=== PATIENT | female | born 1975 | race Caucasian/White ===

== ENCOUNTER 2017-03-06 11:18 | Emergency (ER) | payer MEDICAID ==
[~2017-03-06] VITALS: Ht 162.6 cm; Wt 54.5 kg
[2017-03-06 11:25] VITALS: BP 152/106; PULSE 78; RESP 15; TEMP 98.1; O2SAT 100
[2017-03-06] MEDS ORDERED: BIRTH CONTROL (11:42)
[2017-03-06] MEDS ORDERED: SODIUM CHLOR 0.9% 1000 ML INJ 1,000 ML IV SCH (11:46)
--- NOTE | 2017-03-06 11:54 | PD ---
HPI Chief Complaint: Abdominal Pain Time Seen by Provider: 11:31 Travel History International Travel<30 days: No Contact w/Intl Traveler<30days: No Traveled to known affect area: No History of Present Illness HPI 41-year-old female complains of abdominal pain, nausea vomiting and constipation. Patient states that she was treated for staph infection on the lower extremity about 3 weeks ago. Patient took antibiotics for about 10 days. Patient had a yeast infection after she finished antibiotic. Patient states that she used [id number] Monistat cream with resolution of the problem. Patient started having constipation for the past 2 weeks. Patient try over-the- counter stool softener with some relief. Patient started having increased right upper quadrant abdominal pain and abdominal bloating since yesterday. Patient states the pain is cramping pain and sharp pain localized to the right upper quadrant and right flank area. Patient denies any pain radiation. Patient denies any fever chills. Patient states that she has intermittent nausea vomiting. Patient denies any back pain. Patient states that she has mild dysuria and frequency for the past several days. Patient has history of recurrent UTI in the past. On a scale of 1-10 the pain is a 5. PFSH Past Medical History ?: Unknown LMP: 4 WEEKS Past Surgical History Abdominal Surgery: Yes (HERNIA) Social History Alcohol Use: Yes Tobacco Use: No Substance Use: No Allergies-Medications (Allergen,Severity, Reaction): Coded Allergies: No Known Allergies (Unverified , 03/06/17) Reported Meds & Prescriptions Reported Meds & Active Scripts Active Reported [ Control] Review of Systems General / Constitutional: No: Fever Eyes: No: Visual changes HENT: No: Headaches Cardiovascular: No: Chest Pain or Discomfort Respiratory: No: Shortness of Breath Gastrointestinal: Positive: Nausea, Vomiting, Abdominal Pain, Constipation Genitourinary: No: Dysuria Musculoskeletal: No: Pain Skin: No Rash Neurologic: No: Weakness Psychiatric: No: Depression Endocrine: No: Polydipsia Hematologic/Lymphatic: No: Easy Bruising Physical Exam Narrative GENERAL: Well-nourished, well-developed patient. SKIN: Focused skin assessment warm/dry. HEAD: Normocephalic. EYES: No scleral icterus. No injection or drainage. NECK: Supple, trachea midline. No JVD or lymphadenopathy. CARDIOVASCULAR: Regular rate and rhythm without murmurs, gallops, or rubs. RESPIRATORY: Breath sounds equal bilaterally. No accessory muscle use. GASTROINTESTINAL: Abdomen soft, nondistended. Patient has moderate tenderness on palpation right upper quadrant of the abdomen. No rebound tenderness. No mass. MUSCULOSKELETAL: No cyanosis, or edema. BACK: Nontender without obvious deformity. No CVA tenderness. Neurologic exam normal. Data Data Last Documented VS Vital Signs Date Time Temp Pulse Resp B/P Pulse Ox O2 Delivery O2 Flow Rate FiO2 03/06/17 12:40 71 20 136/83 100 03/06/17 11:25 98.1 Orders Complete Blood Count With Diff (03/06/17 11:46) Comprehensive Metabolic Panel (03/06/17 11:46) Lipase (03/06/17 11:46) Prothrombin Time / Inr (Pt) (03/06/17 11:46) Act Partial Throm Time (Ptt) (03/06/17 11:46) Urinalysis - C+S If Indicated (03/06/17 11:46) Ct Abd/Pel W Iv Contrast(Rout) (03/06/17 11:46) Iv Access Insert/Monitor (03/06/17 11:46) Ecg Monitoring (03/06/17 11:46) Oximetry (03/06/17 11:46) Ondansetron Inj (Zofran Inj) (03/06/17 12:00) Pantoprazole Inj (Protonix Inj) (03/06/17 12:00) Sodium Chlor 0.9% 1000 Ml Inj (Ns 1000 M (03/06/17 11:46) Ed Urine Pregnancytest Poc (03/06/17 11:46) Urine Culture (03/06/17 12:00) Levofloxacin 750 Mg Premix Inj (Levaquin (03/06/17 12:45) Ketorolac Inj (Toradol Inj) (03/06/17 13:30) Iohexol 350 Inj (Omnipaque 350 Inj) (03/06/17 13:10) Labs Laboratory Tests Test 03/06/17 12:00 White Blood Count 17.5 TH/MM3 Red Blood Count 4.09 MIL/MM3 Hemoglobin 13.3 GM/DL Hematocrit 37.4 % Mean Corpuscular Volume 91.4 FL Mean Corpuscular Hemoglobin 32.6 PG Mean Corpuscular Hemoglobin 35.7 % Concent Red Cell Distribution Width 11.5 % Platelet Count 342 TH/MM3 Mean Platelet Volume 7.8 FL Neutrophils (%) (Auto) 78.1 % Lymphocytes (%) (Auto) 11.6 % Monocytes (%) (Auto) 5.8 % Eosinophils (%) (Auto) 0.6 % Basophils (%) (Auto) 3.9 % Neutrophils # (Auto) 13.7 TH/MM3 Lymphocytes # (Auto) 2.0 TH/MM3 Monocytes # (Auto) 1.0 TH/MM3 Eosinophils # (Auto) 0.1 TH/MM3 Basophils # (Auto) 0.7 TH/MM3 CBC Comment DIFF FINAL Differential Comment Prothrombin Time 9.3 SEC Prothromb Time International 0.8 RATIO Ratio Activated Partial 25.4 SEC Thromboplast Time Urine Collection Type CLEAN CATCH Urine Color YELLOW Urine Turbidity MOD Urine pH 6.0 Urine Specific Herrick 1.015 Urine Protein 100 mg/dL Urine Glucose (UA) NEG mg/dL Urine Ketones NEG mg/dL Urine Occult Blood MOD Urine Nitrite POS Urine Bilirubin NEG Urine Leukocyte Esterase LARGE Urine RBC 25-49 /hpf Urine WBC 100-200 /hpf Urine WBC Clumps MOD Urine Squamous Epithelial 0-5 /hpf Cells Urine Amorphous Sediment FEW Urine Bacteria MOD /hpf Microscopic Urinalysis Comment CULTURE INDICATED Urine Collection Time 1200 Sodium Level 136 MEQ/L Potassium Level 5.0 MEQ/L Chloride Level 101 MEQ/L Carbon Dioxide Level 25.8 MEQ/L Anion Gap 9 MEQ/L Blood Urea Nitrogen 14 MG/DL Creatinine 0.90 MG/DL Estimat Glomerular Filtration 70 ML/MIN Rate Random Glucose 94 MG/DL Calcium Level 9.5 MG/DL Total Bilirubin 0.6 MG/DL Aspartate Amino Transf 36 U/L (AST/SGOT) Alanine Aminotransferase 24 U/L (ALT/SGPT) Alkaline Phosphatase 62 U/L Total Protein 7.7 GM/DL Albumin 3.4 GM/DL Lipase 99 U/L [facility] Medical Decision Making Medical Screen Exam Complete: Yes Emergency Medical Condition: Yes Interpretation(s) 12:36 PM. CBC WBC 17.5. 78 neutrophil. CMP within normal limit. UA positive with WBC and bacteria. Differential Diagnosis Differential diagnosis including gastritis, PUD, pancreatitis, cholecystitis, colitis, UTI, pyelonephritis, nephrolithiasis. Narrative Course 41-year-old female with right upper quadrant abdominal pain nausea vomiting and constipation. Normal saline solution 1 25 cc an hour. Protonix 4 mg IV. Zofran 4 mg IV. Diagnosis Primary Impression: Pyelonephritis Patient Instructions: General Instructions Additional Instructions: Bactrim DS as directed. Diflucan as needed for yeast infection. Follow-up with personal physician. Return if persistent problem or worse. Med/Other Pt SpecificInfo: Prescription(s) given Scripts Fluconazole (Diflucan)150 Mg [id number] Mg PO ONCE #1 TAB Ref 0 Prov:Edmund Akers MD 03/06/17 Tramadol (Ultram)50 Mg Tab50 Mg PO Q6H PRN (PAIN) #20 TAB Ref 0 Prov:Edmund Akers MD 03/06/17 Sulfamethoxazole-Trimethoprim (Bactrim DS)800-160 Mg Tab1 Tab PO BID #20 TAB Prov:Edmund Akers MD 03/06/17 Disposition: 01 DISCHARGE HOME Condition: Stable Edmund Akers MD Mar 06, 2017 11:53
[2017-03-06] MEDS ORDERED: ONDANSETRON HCL 4 MG/2 ML VIAL IVP ONE (12:00)
[2017-03-06] MEDS ORDERED: PANTOPRAZOLE SODIUM 40 MG VIAL IVP ONE (12:00)
[2017-03-06 12:02] VITALS: O2SAT 96
[2017-03-06 12:05] LABS: AUTOMATED NEUTROPHIL # 13.7 TH/MM3 (1.8-7.7); BASOPHIL # 0.7 TH/MM3 (0-0.2); BASOPHIL % 3.9 % (0.0-2.0); EOSINOPHIL # 0.1 TH/MM3 (0-0.4); EOSINOPHIL % 0.6 % (0.0-4.0); HEMATOCRIT 37.4 % (35.0-46.0); HEMO FLAGS DIFF FINAL; LYMPH % 11.6 % (9.0-44.0); MEAN CELL VOLUME 91.4 FL (80.0-100.0); MEAN CORPUSCULAR HEMOGLOBIN 32.6 PG (27.0-34.0); MEAN CORPUSCULAR HGB CONC 35.7 % (32.0-36.0); MONO % 5.8 % (0.0-8.0); NEUT % 78.1 % (16.0-70.0); PLATELET COUNT 342 TH/MM3 (150-450); RED BLOOD COUNT 4.09 MIL/MM3 (4.00-5.30); RED CELL DISTRIBUTION WIDTH 11.5 % (11.6-17.2); WHITE BLOOD COUNT 17.5 TH/MM3 (4.0-11.0)
[2017-03-06 12:10] LABS: GLUCOSE,URINE NEG (NEG); KETONE, URINE NEG (NEG)
[2017-03-06 12:12] LABS: BLOOD, URINE MOD (NEG); NITRITE,URINE POS (NEG)
[2017-03-06 12:13] LABS: METHOD OF COLLECTION CLEAN CATCH; URINE COLOR YELLOW (YELLW/STRAW)
[2017-03-06 12:15] LABS: WBC, URINE 100-200 /hpf (0-5)
[2017-03-06 12:16] LABS: BACTERIA, URINE MOD /hpf; CHLORIDE 101 MEQ/L (98-107); COMMENT (UR) CULTURE INDICATED; COMMENT2 (UR) MUCOUS PRESENT; CULTURE IF INDICATED CULTURE INDICATED; SODIUM (NA) 136 MEQ/L (136-145); SQUAMOUS EPITHELIAL CELL URINE 0-5 /hpf (0-5)
[2017-03-06 12:19] LABS: ANION GAP 9 MEQ/L (5-15); BICARBONATE 25.8 MEQ/L (21.0-32.0)
[2017-03-06 12:20] LABS: APTT (PATIENT) 25.4 SEC (24.3-30.1); BLOOD UREA NITROGEN 14 MG/DL (7-18); INTERNATIONAL NORMALIZED RATIO 0.8 RATIO; PROTHROMBIN TIME - PATIENT 9.3 SEC (9.8-11.6)
[2017-03-06 12:22] LABS: ALT (GPT) 24 U/L (10-53); AST (GOT) 36 U/L (15-37); GLOMERULAR FILTRATION RATE 70 ML/MIN (>89)
[2017-03-06 12:24] LABS: TOTAL BILIRUBIN ADULT 0.6 MG/DL (0.2-1.0)
[2017-03-06 12:25] LABS: ALKALINE PHOSPHATASE 62 U/L (45-117)
[2017-03-06 12:40] VITALS: BP 136/83; PULSE 71; RESP 20; O2SAT 100
[2017-03-06] MEDS ORDERED: LEVOFLOXACIN 750 MG PREMIX INJ 150 ML IV ONE (12:45)
[2017-03-06] MEDS ORDERED: IOHEXOL 350 MG/ML 10 ML VIAL (for RAD DIAG) IV ONE (13:10)
--- NOTE | 2017-03-06 13:15 | RADRPT ---
EXAM DATE/TIME: 03/06/2017 12:48 [place] COMPARISON: No previous studies available for comparison. INDICATIONS : Nausea, vomiting diarrhea for 4 days. Right sided abdominal pain. IV CONTRAST: 100 cc Omnipaque 350 (iohexol) IV ORAL CONTRAST: No oral contrast ingested. RADIATION DOSE: 4.74 CTDIvol (mGy) MEDICAL HISTORY : None SURGICAL HISTORY : None. ENCOUNTER: Initial ACUITY: 4 - 6 days PAIN SCALE: 3/10 LOCATION: Right abdominal TECHNIQUE: Volumetric scanning of the abdomen and pelvis was performed. Using automated exposure control and ad justment of the mA and/or kV according to patient size, radiation dose was kept as low as reasonably achievable to obtain optimal diagnostic quality images. DICOM format image data is available electro nically for review and comparison. FINDINGS: Lung bases are clear No focal liver lesions identified. However, the liver is enlarged to 22.7 cm in length. Spleen, adren als, kidneys and pancreas unremarkable. No calcified gallstones or biliary ductal dilatation. Trace free fluid in the pelvis. No free air, appendix appears unremarkable. No bowel obstruction. No adenopathy. No acute bony abnormalities. CONCLUSION: Trace free fluid in the pelvis. Liver enlarged to 22.7 cm. Exam otherwise unremarkable. Jeancarlos Gallagher MD on March 06, 2017 at 13:08 Board Certified Radiologist. This report was verified electronically.
[2017-03-06] MEDS ORDERED: BACT800T5 PO (13:26)
[2017-03-06] MEDS ORDERED: DIFL150T PO (13:26)
[2017-03-06] MEDS ORDERED: ULTR50TA5 PO (13:26)
[2017-03-06] MEDS ORDERED: KETOROLAC TROMETHAMINE 30 MG/ML (IVP) VIAL IV PUSH ONE (13:30)
== END 2017-03-06 15:10 | disposition home or self-care (01) ==
LOC: PHED 11:18
DX: N12 Tubulo-interstitial nephritis, not specified as acute or chronic (principal); B96.29 Other Escherichia coli [E. coli] as the cause of diseases classified elsewhere
CPT/HCPCS: 74177; 80053; 81001; 83690; 84703; 85025; 85610; 85730; 87077; 87086; 87186; 96361; 96365; 96366; 96375; 99285; C9113; J1885; J1956; J2405; J7030; Q9967